=== PATIENT | male | born 1985 | race Caucasian/White ===

== ENCOUNTER 2017-12-08 23:30 | Emergency (ER) | payer OTHER ==
--- NOTE | 2017-12-08 23:32 | PDOC ---
History of Present Illness - General Chief Complaint: Headache Stated Complaint: HEAD PAIN Time Seen by Provider: 12/08/17 23:32 History Source: Patient Exam Limitations: No Limitations - History of Present Illness Initial Comments: 12/08/17 23:44 This is a healthy 32-year-old male who comes in complaining of a mild headache. Patient also is complaining that over the last week whenever he exerts himself or lift something heavy that his head hurts and is like he might pass out. Patient says it only happens if he is straining to lift something heavy. Patient otherwise says he is healthy, takes no medications and denies any medical history. Patient denies any chest pain, shortness breath, nausea, vomiting, diarrhea, fevers, chills or any recent illness. Patient last saw his primary care doctor approximately one year ago and is due for his physical. Patient said he had a headache earlier in the daily took some Tylenol for and is now mostly 90% resolved. PAST MEDICAL HISTORY: no significant history PAST SURGICAL HISTORY: no significant history FAMILY HISTORY: no pertinant history SOCIAL HISTORY: Pt lives with family and is employed. MEDICATIONS: reviewed ALLERGIES: As per nursing notes Review of Systems General: No fevers or chills, no weakness, no weight loss HEENT: No change in vision. No sore throat,. No ear pain CardioVascular: No chest pain or shortness of breath Respiratory:No cough, or wheezing. Gastrointestinal: no nausea, vomitting, diarrhea or constipation, No rectal bleeding Genitourinary: No dysuria, hematuria, or frequency Musculoskeletal: No joint or muscle pain or swelling Neurologic: No headache, vertigo, +dizziness no loss of consciousness Psychiatric: nor depression Skin: No rashes or easy bruising Endocrine: no increased thirst or abnormal weight change Allergic: no skin or latex allergy All other systems reviewed and normal Exam: General: Well-nourished well-developed individual, no acute distress HEENT: Throat: Normal, tonsils normal, no erythema or exudate Neck: Supple, no meningeal signs, no lymphadenopathy Eyes::Pupils equal reactive and round, extraocular motion intact Chest: Nontender to palpation Cardiac: S1-S2 normal, regular rate and rhythm, no murmurs rubs or gallops Respiratory: Lungs clear to auscultation bilateral Abdomen: Soft, nondistended, normal bowel sounds, nontender to palpation diffusely Extremities: Warm, dry, no cyanosis, clubbing, or edema Skin: No rashes Neuro: Alert and oriented x3, CN II - XII intact, nonfocal exam with normal strength, normal sensation, normal reflexes, normal gait, Psych: Normal mood and affect 12/08/17 23:57 EKG shows normal sinus rhythm at a rate of 69, no acute ST-T wave changes normal intervals normal EKG. Assessment and plan: This 32-year-old male who comes in with symptoms of not feeling well. Patient is complaining of a mild headache and symptoms of dizziness when he tries to lift something heavy during the last week. The patient denies any other associated symptoms of chest pain shortness of breath patient denies any fevers or chills. Patient cardiogram is normal. Patient was reassured and will follow up with his PMD. Past History - Past Medical History Allergies/Adverse Reactions: Allergies Allergy/AdvReac Type Severity Reaction Status Date / Time No Known Allergies Allergy Unverified 12/08/17 23:31 Home Medications: Ambulatory Orders NK [No Known Home Medication] 12/08/17 *DC/Admit/Observation/Transfer Diagnosis at time of Disposition: Viral illness - Discharge Dispostion Disposition: HOME Condition at time of disposition: Stable Decision to Admit order: No - Referrals - Patient Instructions Additional Instructions: It is important that you call your doctor and an appointment for a physical. Return to the emergency department immediately with ANY new, persistent or worsening symptoms. Continue any medications as previously prescribed by your physician. You should follow up with your primary doctor as soon as possible regarding today's emergency department visit. . Please make sure your doctor reviews the results of your emergency evaluation. Thank you for coming to the Emergency Department today for your care. It was a pleasure to see you today. Please note that your evaluation is INCOMPLETE until you follow-up with your doctor. - Post Discharge Activity
[2017-12-08 23:35] VITALS: BP 164/102; PULSE 85; TEMP 98.9; BMI 24.3
--- NOTE | 2017-12-09 11:20 | EKG ---
Test Reason : Blood Pressure : / mmHG Vent. Rate : 069 BPM Atrial Rate : 069 BPM P-R Int : 208 ms QRS Dur : 082 ms QT Int : 394 ms P-R-T Axes : 053 -34 001 degrees QTc Int : 422 ms NORMAL SINUS RHYTHM LEFT AXIS DEVIATION ABNORMAL ECG NO PREVIOUS ECGS AVAILABLE Confirmed by RADHA ANTONIO MD ([id number]) on 12/09/2017 11:20:13 AM Referred By: ANDRES CARTWRIGHT Confirmed By:RADHA ANTONIO MD
== END 2017-12-09 00:01 | disposition home or self-care (01) ==
LOC: FER 23:30
DX: B34.9 Viral infection, unspecified (principal)
CPT/HCPCS: 93005; 93010; 99281-25